=== PATIENT | female | born 1995 | race Caucasian/White ===

== ENCOUNTER 2016-11-30 10:32 | Inpatient (IN) | payer OTHER ==
[~2016-11-30] VITALS: Ht 160 cm; Wt 85.0 kg
[~2016-11-30 10:32] MED LIST: CLC100 PO; FRRS300 PO; MTR600X PO; PRENTAB26 PO
[2016-11-30] MEDS ORDERED: LACTATED RINGER'S 1000ML 1,000 ML IV PRN (10:43)
[2016-11-30] MEDS ORDERED: LACTATED RINGER'S 1000ML 1,000 ML IV SCH ×2 (10:43→15:28)
--- NOTE | 2016-11-30 10:48 | Progress Note ---
Progress Note Admit Note 21 F P1000 at 38 weeks admitted in active labor. Cervix 8/100/-1/intact with bulging membranes. GBS negative. FHT Cat 1. Will admit in active labor.
[2016-11-30 11:06] LABS: HEMATOCRIT 30.8 % (37-47); MEAN CELL VOLUME 77.2 fL (80-100); MEAN CORPUSCULAR HEMOGLOBIN 26.1 pg (25-34); MEAN CORPUSCULAR HGB CONC 33.8 g/dl (32-36); MEAN PLATELET VOLUME 9.5 fL (7.4-10.4); PLATELET COUNT 281 K/uL (130-400); RED BLOOD COUNT 3.99 M/uL (4.2-5.4); WHITE BLOOD COUNT 7.06 K/uL (4.8-10.8)
[2016-11-30 11:37] VITALS: Ht 160 cm; Wt 85.0 kg
[2016-11-30] MEDS ORDERED: OXYTOCIN 30 UNITS/500ML NSS IV ONE (12:01)
--- NOTE | 2016-11-30 12:04 | Progress Note ---
Progress Note Cervix with anterior lip/-1 AROM with thin meconium fluid noted. FHT Cat 1
[2016-11-30] MEDS ORDERED: LACTATED RINGER'S 1000ML 500 ML IV PRN (12:19)
[2016-11-30] MEDS ORDERED: OXYTOCIN 30 UNITS/500ML NSS IV PRN ×2 (12:30→15:30)
[2016-11-30] MEDS ORDERED: BUTORPHANOL TARTRATE 1 MG/ML VIAL ONE (13:26)
[2016-11-30] MEDS ORDERED: BUTORPHANOL TARTRATE 1 MG/ML VIAL IV ONE (13:30)
[2016-11-30] MEDS ORDERED: IBUPROFEN 600 MG TAB ONE (15:19)
[2016-11-30] MEDS ORDERED: DIPHTHERIA/TETANUS/PERTUSSIS 0.5 ML SYR/VIAL IM. ONE (15:30)
[2016-11-30] MEDS ORDERED: SUPERCREAM 0.870 % 15GM JAR EXT PRN (15:30)
[2016-11-30] MEDS ORDERED: LANOLIN OINT EXT PRN ×2 (15:30)
[2016-11-30] MEDS ORDERED: ACETAMINOPHEN/CODEINE 300/30MG TAB PO PRN ×2 (15:30)
[2016-11-30] MEDS ORDERED: HYDROCORTISONE ACETATE 25 MG SUPP PR PRN (15:30)
[2016-11-30] MEDS ORDERED: IBUPROFEN 600 MG TAB PO PRN (15:30)
[2016-11-30] MEDS ORDERED: ACETAMINOPHEN 325 MG TAB PO PRN (15:30)
[2016-11-30] MEDS ORDERED: MEASLES, MUMPS & RUBELLA VIRUS VIAL SQ. ONE (15:30)
[2016-11-30] MEDS ORDERED: BENZOCAINE 20% AER SPR 82.5 GM CAN EXT PRN (15:30)
[2016-11-30] MEDS ORDERED: OXYCODONE/ACETAMINOPHEN 5-325 TAB PO PRN (15:30)
--- NOTE | 2016-11-30 15:35 | Progress Note ---
Progress Note Delivery Note live female over intact perineum with Apgars 8/9 weight pending. Delayed cord clamping followed by cord collection and spontaneous delivery of intact placenta. EBL 200 ml. No tears. Final sponge, needle and instrument count are correct. MOm and baby stable.
[2016-11-30 18:46] VITALS: BP 129/82; PULSE 96; TEMP 36.7
[2016-11-30 19:40] VITALS: BP 128/87; PULSE 97; TEMP 36.4; O2SAT 98
[2016-11-30] MEDS: DOCUSATE SODIUM 100 MG CAP PO SCH (20:20)
[2016-11-30 22:15] VITALS: BP 123/80; PULSE 86; TEMP 36.9; O2SAT 99
[2016-12-01 02:45] VITALS: BP 114/68; PULSE 96; TEMP 37.1; O2SAT 98
[2016-12-01 06:54] LABS: HEMATOCRIT 23.8 % (37-47)
[2016-12-01 07:45] VITALS: BP 115/73; PULSE 92; TEMP 37; O2SAT 98
[2016-12-01] MEDS ORDERED: FERROUS SULFATE 325 MG TAB PO SCH (08:00)
--- NOTE | 2016-12-01 09:01 | OB/GYN Progress Note ---
SAND MOLDER Progress Note Date of Service: Dec 01, 2016. Patient is seen and examined. She feels well, no complaints. Ambulating without dizziness Voiding without difficulty Tolerating regular diet with out N&V Bleeding is minimal No fever/ chills/ CP/ SOB/ N&V/ Leg pain Breast feeding without problems Date Time Temp Pulse Resp B/P Pulse Ox O2 Delivery O2 Flow Rate FiO2 12/01/16 02:45 37.1 96 16 114/68 98 Room Air 11/30/16 22:15 99 Room Air 11/30/16 22:15 36.9 86 18 123/80 99 Room Air 11/30/16 19:40 36.4 97 16 128/87 98 Room Air 11/30/16 18:50 Room Air 11/30/16 18:46 36.7 96 20 129/82 Room Air Last 24 Hours Test 11/30/16 10:55 12/01/16 06:11 White Blood Count 7.06 K/uL Red Blood Count 3.99 M/uL Hemoglobin 10.4 g/dL 8.0 g/dL Hematocrit 30.8 % 23.8 % Mean Corpuscular Volume 77.2 fL Mean Corpuscular Hemoglobin 26.1 pg Mean Corpuscular Hemoglobin Concent 33.8 g/dl RDW Standard Deviation 43.3 fL RDW Coefficient of Variation 15.2 % Platelet Count 281 K/uL Mean Platelet Volume 9.5 fL PE: General: Alert, orientedx3, NAD Abd: soft, NT, fundus firm, below Umbilicus Perineum intact, Lochia rubra minimal, small 3x3 mm ext. hemorrhoid+, pink, NT Ext; NT, no edema AP: 21 yo s/p , ppd# 1 VSS Afebrile doing well Continue routine care All questions were answered D/C home tomorrow
[2016-12-01] MEDS: FERROUS SULFATE 325 MG TAB PO SCH ×2 (09:03→17:27)
[2016-12-01] MEDS: DOCUSATE SODIUM 100 MG CAP PO SCH ×2 (09:03→19:57)
[2016-12-01] MEDS: PRENATAL VITAMIN TAB PO SCH (09:03)
[2016-12-01 11:00] VITALS: BP 115/75; PULSE 88; TEMP 36.8; O2SAT 98
[2016-12-01 17:00] VITALS: BP 114/78; PULSE 88; TEMP 36.8; O2SAT 98
[2016-12-01] MEDS ORDERED: BISACODYL 5 MG TABEC PO SCH (20:00)
[2016-12-02 00:20] VITALS: BP 104/68; PULSE 90; TEMP 36.8
[2016-12-02] MEDS ORDERED: BISACODYL 10 MG SUPP PR PRN (07:00)
[2016-12-02 07:30] VITALS: BP 118/73; PULSE 91; TEMP 37; O2SAT 98
[2016-12-02] MEDS: DOCUSATE SODIUM 100 MG CAP PO SCH (08:23)
[2016-12-02] MEDS: FERROUS SULFATE 325 MG TAB PO SCH (08:23)
[2016-12-02] MEDS: PRENATAL VITAMIN TAB PO SCH (08:23)
--- NOTE | 2016-12-02 09:44 | Discharge Instructions ---
Discharge Instructions Admission Reason for Admission: Labor Check Discharge Discharge Diagnosis / Problem: Vaginal Delivery Discharge Goals Goal(s): Routine recovery after delivery Medications Continue Dispensed Medications: supercream, dermaplast, tucks, lansinoh Activity Recommendations Activity Limitations: per Instructions/Follow-up section . Instructions / Follow-Up Instructions / Follow-Up ACTIVITY RECOMMENDATIONS: * Gradual return to full activity over the next 2-3 weeks. * No lifting - nothing heavier than baby over the next 2-3 weeks. * Do not engage in vigorous exercise, sexual activity or sports until cleared by your physician. * Do not drive or operate any motorized equipment until cleared by your physician. * You may shower/bathe daily. BREAST CARE: If you are not breast feeding: * Wear a supportive bra 24 hours a day for one to two weeks. * Avoid stimulating your breasts and nipples as much as possible during the first few weeks after delivery. * When taking a shower, have the warm water hit your back, not breasts. * When your breasts feel full, apply ice packs. Usually three to four times a day helps ease the discomfort. * Take a mild pain medication (Tylenol/Motrin) when you are uncomfortable. If breast feeding: * Use breast milk to lubricate nipples. Lansinoh cream may be used for sore nipples. You do not need to remove cream prior to breast feeding. If using a different brand of cream, check the label for directions regarding removal of cream prior to nursing. * Wear a supportive bra. * If having problems with breasts or breast feeding, call a sap ppm consultant or your health care provider. EPISIOTOMY CARE: After delivery, if you have an episiotomy (stitches), the following steps will ease discomfort and aid healing. * For the first 24 hours after delivery, place ice packs next to your episiotomy to help reduce swelling. * After the first 24 hour-period, sitz baths, either portable or in the tub, are suggested. A shower with a shower arm sprayed over the episiotomy may be comforting. * Lyn care should be done after each voiding and bowel movement. Squirt warm water from a plastic bottle over the perineum (region of the body between the anus and urinary opening) and pat dry. * Use Dermoplast to ease discomfort. Shake container. [place] directly over the episiotomy. * Place a Tucks on a clean sanitary pad next to your episiotomy. OVER THE COUNTER MEDICATION: * For discomfort or pain, you may use Acetaminophen (Tylenol), Ibuprofen (Advil ), or Naproxen (Aleve) following the package directions. * For constipation you may use Colace following the package directions. SPECIAL CARE INSTRUCTIONS: When you are discharged from the hospital, it is important for you to follow the instructions listed below: * During the first week at home, you should be able to care for yourself and your baby. In addition, the usual light household activities are encouraged. * Limit your activities to the way you feel. Do not try to clean the house or move furniture. Be sensible. * If you actively engage in sports and have done so up until the time of your delivery, you may resume these activities as soon as you feel able. This may take up to one month or even longer. Use good judgment. * Continue to take your vitamins for at least six weeks after the of your baby. * Your diet need not be limited unless you were on a special diet before your delivery. Breast-feeding mothers need around 2500 calories per day and at least 64-80 ounces of fluid per day (8 to 10 glasses). * You should eat foods from the four major food groups. Crash diets or fad diets are to be avoided. Eating lean meats, fresh fruits and vegetables, low-fat dairy products, high fiber foods and a regular exercise program, will help you get back to your pre- weight without putting your health at risk. * Constipation is sometimes a problem after delivery. Take a mild laxative as needed. If breast feeding, Milk of Magnesia is acceptable to use. You may use a suppository or Fleets enema if no episiotomy. * A daily shower or tub bath is suggested. Be sure to thoroughly and gently dry the perineum. * A bloody vaginal discharge will usually continue until around four weeks post . A small amount of bleeding may continue for as long as six weeks. Vaginal discharge changes from the bright red bleeding after delivery to pink then brownish and finally yellowish-pink before becoming white and disappearing. * Bleeding may increase with activity. Your first period may come in 4-8 weeks. If you are breast feeding, your period may be delayed even longer. * [place] (sex) can begin whenever both you and your partner feel comfortable and do not have any form of genital infection. It is recommended that you wait until after your return appointment and discuss with your physician. If you have questions, please talk to your health care practitioner. A condom should be used to prevent infection and . * Foreplay, gentle intercourse and lubrication is very important the first several times to prevent pain. A water-based lubricant such as K-Y jelly or Astroglide may be used. * Tampons may be used six weeks after delivery. * Douching should be avoided for 6 weeks after delivery. * If you have RH negative blood and your baby is RH positive, you will receive RHOGAM by injection prior to discharge. The nurse will give you a card to keep with you that has the date and place that you received RHOGAM after delivery. * During your care, you had a Rubella screen done to check for the presence of rubella antibodies in your blood. If your test was negative, you will receive a Rubella vaccine prior to discharge. This vaccine may cause a fever, soreness at the injection site and flu-like symptoms. If these symptoms persist, notify your health care practitioner. is not advised for three months after a Rubella vaccine. There is a higher chance of having a baby with defects if conceived within three months of getting the vaccine. * If you were discharged 24 hours from delivery or before 48 hours: Visiting nurses will come to your home 48 hours after discharge to assess you and your baby. The visiting nurse will meet with you while you are in the hospital to arrange a time and get directions to your home. * Verbalizes understanding of car seat law as reviewed with patient nursing. * Car Seat hand-out given and reviewed with patient by nursing. * Shaken baby information reviewed with patient by nursing. Call you doctor if: * Heavy bleeding (saturating several pads an hour) or passing clots the size of your fist. * A fever >101 degrees F (38.3 degrees C) on two occasions four hours apart and/or chills. * Unusual pain in the pelvic or vaginal areas. * "Baby Blues" lasting longer than two weeks. If you have any questions or concerns, call your health care practitioner at . FOLLOW-UP VISIT: * Please call the office at to schedule a 6 week examination. It is important you keep this appointment. * It is important for you to make arrangements for either yearly or twice yearly check-ups thereafter. Current Hospital Diet Patient's current hospital diet: Regular OB Diet Discharge Diet Recommended Diet: Regular OB Diet Pending Studies Studies pending at discharge: no Medical Emergencies . Who to Call and When: Medical Emergencies: If at any time you feel your situation is an emergency, please call 911 immediately. . Non-Emergent Contact Non-Emergency issues call your: Primary Care Provider, Photographic Process Worker . . "Provider Documentation" section prepared by Vernon Carter. VTE Core Measure Inpt VTE Proph given/why not?: Treatment not indicated
--- NOTE | 2016-12-02 09:46 | OB/GYN Progress Note ---
FENCE SUPERVISOR Progress Note Date of Service Dec 02, 2016. Subjective conversation w/ patient Ambulation: ambulating normally Voiding: no voiding problems Passing Gas: Yes Diet Tolerance: Regular Diet Lochia: Moderate Feeding Type: Breast Feeding Pain: 11/17 Notes: Doing well, no concerns. Would like to go home today. Objective Vital Signs Date Time Temp Pulse Resp B/P Pulse Ox O2 Delivery O2 Flow Rate FiO2 12/02/16 00:20 Room Air 12/02/16 00:20 36.8 90 18 104/68 12/01/16 17:00 98 Room Air 12/01/16 17:00 36.8 88 18 114/78 98 Room Air 12/01/16 11:00 36.8 88 16 115/75 98 Room Air Physical Exam General Appearance: WELL-APPEARING Respiratory/Chest: chest non-tender, lungs clear Cardiovascular: regular rate, rhythm Abdomen: normal bowel sounds, soft Fundus: Firm Extremities: normal range of motion, non-tender, no calf tenderness Assessment and Plan Post- Day Number: 2 Continue Routine Care: -D/C home today -F/U in 6 weeks.
[2016-12-02 10:35] VITALS: BP_DIAS 73; PULSE 91; TEMP 37
== END 2016-12-02 10:45 | disposition home or self-care (01) | DRG 775 ==
LOC: C.OPB 10:32 → C.LD 10:33 → C.OPB 10:43 → C.LD 10:43 → C.OBG 18:13
PROVIDERS: ADMIT Obstetrics & Gynecology; ATTEND Obstetrics & Gynecology
PROC: 10E0XZZ Delivery of Products of Conception, External Approach (ICD-10-PCS; principal; 2016-11-30)
DX: O77.0 Labor and delivery complicated by meconium in amniotic fluid (principal); O87.2 Hemorrhoids in the puerperium; Z37.0 Single live birth; Z3A.38 38 weeks gestation of pregnancy

== ENCOUNTER → 2017-08-17 | Outpatient (CLI) | payer OTHER ==
[~2017-08-17] MED LIST changes: -MTR600X PO
[2017-08-17 14:26] LABS: URINE APPEARANCE CLEAR (CLEAR); URINE BILIRUBIN NEG (NEG); URINE COLOR YELLOW; URINE NITRITE NEG (NEG); URINE PH 7.5 (4.5-7.5); URINE SPECIFIC GRAVITY 1.006 (1.000-1.030); UROBILINOGEN NEG (NEG)
[2017-08-17 14:27] LABS: MANUAL MICROSCOPIC REQUIRED? NO; REVIEW REQ? NO
[2017-08-20 00:32] LABS: CHLAMYDIA TRACH RNA*** NOT DETECTED (NOT DETECTED); GC (NEIS GONORRHOEAE)RNA** NOT DETECTED (NOT DETECTED)
== END | disposition home or self-care (01) ==
LOC: C.LABSPEC 13:39
PROVIDERS: ATTEND Obstetrics & Gynecology
DX: Z34.81 Encounter for supervision of other normal pregnancy, first trimester (principal)

== ENCOUNTER → 2017-10-19 | Outpatient (CLI) | payer OTHER ==
[2017-10-19 15:32] LABS: GTGD 50 Grams
== END | disposition home or self-care (01) ==
LOC: C.LAB1850 13:54
PROVIDERS: ATTEND Obstetrics & Gynecology
DX: Z34.82 Encounter for supervision of other normal pregnancy, second trimester (principal)

== ENCOUNTER → 2018-01-07 | Outpatient (CLI) | payer OTHER | END | disposition home or self-care (01) | LOC: C.LABSPEC 13:13 | PROVIDERS: ATTEND Obstetrics & Gynecology | DX: Z34.83 Encounter for supervision of other normal pregnancy, third trimester (principal) ==

== ENCOUNTER → 2018-01-07 | Outpatient (CLI) | payer OTHER ==
[2018-01-07 12:03] LABS: HEMATOCRIT 30.5 % (37-47); HEMOGLOBIN 10.3 g/dL (12.0-16.0)
== END | disposition home or self-care (01) ==
LOC: C.LAB1850 10:05
PROVIDERS: ATTEND Obstetrics & Gynecology
DX: Z34.83 Encounter for supervision of other normal pregnancy, third trimester (principal); Z29.13 Encounter for prophylactic Rho(D) immune globulin

== ENCOUNTER → 2018-01-11 | Outpatient (CLI) | payer OTHER | END | disposition home or self-care (01) | LOC: C.LAB1850 13:07 | PROVIDERS: ATTEND Obstetrics & Gynecology | DX: Z34.83 Encounter for supervision of other normal pregnancy, third trimester (principal); Z29.13 Encounter for prophylactic Rho(D) immune globulin ==

== ENCOUNTER → 2018-01-21 | Outpatient (CLI) | payer OTHER | END | disposition home or self-care (01) | LOC: C.LAB1850 10:30 | PROVIDERS: ATTEND Obstetrics & Gynecology | DX: Z34.83 Encounter for supervision of other normal pregnancy, third trimester (principal) ==

== ENCOUNTER → 2018-03-04 | Outpatient (CLI) | payer OTHER | END | disposition home or self-care (01) | LOC: C.LABSPEC 17:44 | PROVIDERS: ATTEND Obstetrics & Gynecology | DX: Z34.83 Encounter for supervision of other normal pregnancy, third trimester (principal) ==

== ENCOUNTER 2018-03-16 06:02 | Inpatient (IN) | payer OTHER ==
[~2018-03-16] VITALS: Ht 160 cm; Wt 90.0 kg
[2018-03-16 06:34] VITALS: Ht 160 cm; Wt 90.0 kg
[2018-03-16] MEDS ORDERED: LACTATED RINGER'S 1000ML 1,000 ML IV SCH (06:38)
[2018-03-16] MEDS ORDERED: LACTATED RINGER'S 1000ML 1,000 ML IV PRN (06:38)
[2018-03-16] MEDS ORDERED: FERR325T18 PO (06:48)
[2018-03-16 07:00] LABS: HEMATOCRIT 29.9 % (37-47); HEMOGLOBIN 9.9 g/dL (12.0-16.0); MEAN CELL VOLUME 76.3 fL (80-100); MEAN CORPUSCULAR HEMOGLOBIN 25.3 pg (25-34); MEAN CORPUSCULAR HGB CONC 33.1 g/dl (32-36); MEAN PLATELET VOLUME 9.2 fL (7.4-10.4); PLATELET COUNT 269 K/uL (130-400); RED CELL DISTRIBUTION WIDTH CV 14.2 % (11.5-14.5); RED CELL DISTRIBUTION WIDTH SD 39.8 fL (36.4-46.3); WHITE BLOOD COUNT 7.45 K/uL (4.8-10.8)
[2018-03-16] MEDS ORDERED: BUPIVACAINE 0.25% 30 ML VIAL ONE (07:20)
[2018-03-16] MEDS ORDERED: EpHEDrine SULFATE INJ 50 MG/ML AMP ONE (07:20)
[2018-03-16] MEDS ORDERED: FENTANYL 2MCG/ML ROPIV 1.25MG/ML 100ML BAG ONE (07:21)
[2018-03-16] MEDS ORDERED: FENTANYL CITRATE INJ 50 MCG/1 ML 2 ML VIAL ONE (07:21)
[2018-03-16] MEDS ORDERED: LACTATED RINGER'S 1000ML 500 ML IV PRN (08:16)
[2018-03-16] MEDS ORDERED: NALOXONE HCL INJ 1 MG in SODIUM CHLORIDE 0.9% 1000ML 1,000 ML IV PRN (08:16)
[2018-03-16] MEDS ORDERED: NALOXONE HCL INJ 0.4 MG/1 ML VIAL/CARP IV PRN (08:30)
[2018-03-16] MEDS ORDERED: EpHEDrine SULFATE INJ 50 MG/ML AMP IV PRN (08:30)
[2018-03-16] MEDS ORDERED: NALBUPHINE HCL INJ 10 MG/ML AMP IV PRN (08:30)
[2018-03-16] MEDS ORDERED: ONDANSETRON INJ 2 MG/ML 2 ML VIAL IV PRN (08:30)
[2018-03-16] MEDS ORDERED: FENTANYL 2MCG/ML ROPIV 1.25MG/ML 100ML BAG EPI PRN (08:30)
[2018-03-16] MEDS ORDERED: DiphenhydrAMINE HCL 50 MG/ML VIAL IV PRN (08:30)
[2018-03-16] MEDS ORDERED: OXYTOCIN 30 UNITS/500ML NSS IV ONE (10:49)
[2018-03-16] MEDS ORDERED: METHYLERGONOVINE MALEATE 0.2 MG/ML AMP ONE (10:56)
[2018-03-16] MEDS ORDERED: OXYTOCIN 30 UNITS/500ML NSS IV PRN (11:15)
[2018-03-16] MEDS ORDERED: SUPERCREAM 0.870 % 15GM JAR EXT PRN (11:15)
[2018-03-16] MEDS ORDERED: LANOLIN OINT EXT PRN (11:15)
[2018-03-16] MEDS ORDERED: DIPHTHERIA/TETANUS/PERTUSSIS 0.5 ML SYR/VIAL IM. ONE (11:15)
[2018-03-16] MEDS ORDERED: ACETAMINOPHEN 325 MG TAB PO PRN (11:15)
[2018-03-16] MEDS ORDERED: HYDROCORTISONE ACETATE 25 MG SUPP PR PRN (11:15)
[2018-03-16] MEDS ORDERED: BENZOCAINE 20% AER SPR 82.5 GM CAN EXT PRN (11:15)
[2018-03-16] MEDS ORDERED: ACETAMINOPHEN/CODEINE 300/30MG TAB PO PRN ×2 (11:15)
--- NOTE | 2018-03-16 11:49 | DELIVERY SUMMARY ---
DATE OF OPERATION: 03/16/2018 DATE OF DELIVERY: 03/16/18 PREDELIVERY DIAGNOSES: 1. 23-year-old -0-0-1 at 38 weeks 6 days. 2. Spontaneous labor. 3. Rh negative. 4. History of at . POST DELIVERY DIAGNOSES: Same. PROCEDURE: Spontaneous vaginal delivery and repair of first degree perineal laceration. COMPLICATIONS: None. ESTIMATED BLOOD LOSS: 300 mL. FINDINGS: Viable female . Apgars 8 and 9. Weight pending, please see nursery record. DESCRIPTION OF DELIVERY: The patient had presented in spontaneous labor, received an epidural and progressed to complete. heart tracing was category 1 throughout and then she had 2-3 variable decelerations just prior to pushing. She pushed once and spontaneously vaginally delivered a viable from the cephalic presentation. The head delivered in left occiput anterior position, no nuchal cord was noted. The anterior shoulder delivered followed by the posterior shoulder, followed by the body. The baby was placed on mother's abdomen. The cord was doubly clamped and cut and the baby was handed off to the waiting cassandra consultant, Dr. Juares, who attended delivery. The cord was doubly clamped and cut for a cord gas segment. Cord blood was obtained. The placenta then delivered spontaneously intact with a 3-vessel cord. Pitocin was given. The uterus was initially boggy and therefore a dose of Methergine was ordered and given. The bladder was drained for 400 cc of urine. The vagina and uterus were swept of all clots and debris. The cervix, vagina and perineum were inspected and a first degree peroneal laceration was noted and repaired in standard fashion with 3-0 Vicryl. Excellent hemostasis was observed and the uterus was firm. The mother and baby tolerated the delivery well and are recovering in the room in stable and good condition. All instrument, sponge and needle counts were correct at the conclusion of the delivery x2. I attest to the content of the Intraoperative Record and any orders documented therein. Any exception s are noted below.
[2018-03-16] MEDS: IBUPROFEN 600 MG TAB PO PRN ×3 (13:40→23:25)
[2018-03-16 14:15] VITALS: BP 129/82; PULSE 121; TEMP 36.6
[2018-03-16 16:00] VITALS: BP 106/70; PULSE 88; TEMP 36.7; O2SAT 97
--- NOTE | 2018-03-16 16:27 | Discharge Instructions ---
Discharge Instructions Date of Service March 16, 2018. Admission Reason for Admission: LABOR Discharge Discharge Diagnosis / Problem: Vaginal Delivery Discharge Goals Goal(s): Routine recovery after delivery Medications Continue Dispensed Medications: supercream, dermaplast, tucks, lansinoh Activity Recommendations Activity Limitations: per Instructions/Follow-up section . Instructions / Follow-Up Instructions / Follow-Up ACTIVITY RECOMMENDATIONS: * Gradual return to full activity over the next 2-3 weeks. * No lifting - nothing heavier than baby over the next 2-3 weeks. * Do not engage in vigorous exercise, sexual activity or sports until cleared by your physician. * Do not drive or operate any motorized equipment until cleared by your physician. * You may shower/bathe daily. MEDICATIONS: For discomfort or pain, you may use Acetaminophen (Tylenol), Ibuprofen (Advil), or Naproxen (Aleve) following the package directions. For constipation you may use Colace following the package directions. BREAST CARE: If you are not breast feeding: * Wear a supportive bra 24 hours a day for one to two weeks. * Avoid stimulating your breasts and nipples as much as possible during the first few weeks after delivery. * When taking a shower, have the warm water hit your back, not breasts. * When your breasts feel full, apply ice packs. Usually three to four times a day helps ease the discomfort. * Take a mild pain medication (Tylenol / Motrin) when you are uncomfortable. If breast feeding: * Use breast milk to lubricate nipples. Lansinoh cream may be used for sore nipples. You do not need to remove cream prior to breast feeding. If using a different brand of cream, check the label for directions regarding removal of cream prior to nursing. * Wear a supportive bra. * If having problems with breasts or breast feeding, call a sap pp consultant or your health care provider. EPISIOTOMY CARE: After delivery, if you have an episiotomy (stitches), the following steps will ease discomfort and aid healing. * For the first 24 hours after delivery, place ice packs next to your episiotomy to help reduce swelling. * After the first 24 hour-period, sitz baths, either portable or in the tub, are suggested. A shower with a shower arm sprayed over the episiotomy may be comforting. * Lyn care should be done after each voiding and bowel movement. Squirt warm water from a plastic bottle over the perineum (region of the body between the anus and urinary opening) and pat dry. * Use Dermoplast to ease discomfort. Shake container. [place] directly over the episiotomy. Place a Tucks on a clean sanitary pad next to your episiotomy. SPECIAL CARE INSTRUCTIONS: When you are discharged from the hospital, it is important for you to follow the instructions listed below: * During the first week at home, you should be able to care for yourself and your baby. In addition, the usual light household activities are encouraged. * Limit your activities to the way you feel. Do not try to clean the house or move furniture. Be sensible. * If you actively engage in sports and have done so up until the time of your delivery, you may resume these activities as soon as you feel able. This may take up to one month or even longer. Use good judgment. * Continue to take your vitamins for at least six weeks after the of your baby. * Your diet need not be limited unless you were on a special diet before your delivery. Breast-feeding mothers need around 2500 calories per day and at least 64-80 ounces of fluid per day (8 to 10 glasses). * You should eat foods from the four major food groups. Crash diets or fad diets are to be avoided. Eating lean meats, fresh fruits and vegetables, low-fat dairy products, high fiber foods and a regular exercise program, will help you get back to your pre- weight without putting your health at risk. * Constipation is sometimes a problem after delivery. Take a mild laxative as needed. If breast feeding, Milk of Magnesia is acceptable to use. You may use a suppository or Fleets enema if no episiotomy. * A daily shower or tub bath is suggested. Be sure to thoroughly and gently dry the perineum. * A bloody vaginal discharge will usually continue until around four weeks post . A small amount of bleeding may continue for as long as six weeks. Vaginal discharge changes from the bright red bleeding after delivery to pink then brownish and finally yellowish-pink before becoming white and disappearing. * Bleeding may increase with activity. Your first period may come in 4-8 weeks. If you are breast feeding, your period may be delayed even longer. * [place] (sex) can begin whenever both you and your partner feel comfortable and do not have any form of genital infection. It is recommended that you wait at least six weeks for internal and external healing to occur. If you have questions, please talk to your health care practitioner. A condom should be used to prevent infection and . * Foreplay, gentle intercourse and lubrication is very important the first several times to prevent pain. A water-based lubricant such as K-Y jelly or Astroglide may be used. * If you have RH negative blood and your baby is RH positive, you will receive RHOGAM by injection prior to discharge. The nurse will give you a card to keep with you that has the date and place that you received RHOGAM after delivery. * During your care, you had a Rubella screen done to check for the presence of rubella antibodies in your blood. If your test was negative, you will receive a Rubella vaccine prior to discharge. This vaccine may cause a fever, soreness at the injection site and flu-like symptoms. If these symptoms persist, notify your health care practitioner. is not advised for one month after a Rubella vaccine. * Verbalizes understanding of car seat law as reviewed with patient nursing. * Car Seat hand-out given and reviewed with patient by nursing. * Shaken baby information reviewed with patient by nursing. Call you doctor if: * Heavy bleeding (saturating several pads an hour) or passing clots the size of your fist. * A fever >101 degrees F (38.3 degrees C) on two occasions four hours apart and /or chills. * Unusual pain in the pelvic or vaginal areas. * "Baby Blues" lasting longer than two weeks. If you have any questions or concerns, call your health care practitioner at . FOLLOW UP VISIT: * Please call the office at to schedule a 6 week examination. It is important you keep this appointment. It is important for you to make arrangements for either yearly or twice yearly check-ups thereafter. Current Hospital Diet Patient's current hospital diet: Regular OB Diet Discharge Diet Recommended Diet: Regular Diet Pending Studies Studies pending at discharge: no Medical Emergencies . Who to Call and When: Medical Emergencies: If at any time you feel your situation is an emergency, please call [phone] immediately. . Non-Emergent Contact Non-Emergency issues call your: Primary Care Provider . . "Provider Documentation" section prepared by Shelley Sheth. .
[2018-03-16 19:45] VITALS: BP 113/74; PULSE 91; TEMP 36.9; O2SAT 98
[2018-03-16] MEDS: FERROUS GLUCONATE 324 MG TAB PO SCH (21:02)
[2018-03-16 23:00] VITALS: BP 132/87; PULSE 79; TEMP 36.6; O2SAT 96
[2018-03-17 03:50] VITALS: BP 116/74; PULSE 78; TEMP 36.6; O2SAT 99
--- NOTE | 2018-03-17 06:26 | Progress Note ---
Subjective March 17, 2018. Subjective conversation w/ patient Ambulation: ambulating normally Voiding: no voiding problems Diet Tolerance: Regular Diet Lochia: Moderate Feeding Type: Breast Feeding Pain: 1-2/10 crampy abdominal pain Review of Systems Constitutional: No fever, No chills Respiratory: No shortness of breath Cardiac: No chest pain Abdomen: No nausea, No vomiting Objective Vital Signs Date Time Temp Pulse Resp B/P (MAP) Pulse Ox O2 Delivery O2 Flow Rate FiO2 03/17/18 03:50 36.6 78 16 116/74 (88) 99 Room Air 03/16/18 23:00 36.6 79 18 132/87 (102) 96 Room Air 03/16/18 23:00 96 Room Air 03/16/18 19:45 36.9 91 18 113/74 (87) 98 Room Air 03/16/18 16:00 97 Room Air 03/16/18 16:00 36.7 88 16 106/70 (82) 97 Room Air 03/16/18 14:15 Room Air 03/16/18 14:15 36.6 121 16 129/82 (98) Room Air Physical Exam General Appearance: WELL-APPEARING, WD/WN, NO APPARENT DISTRESS Respiratory/Chest: lungs clear, normal breath sounds Cardiovascular: regular rate, rhythm Abdomen: soft Fundus: Firm, Non-Tender, Relation to Umbilicus (at u) Extremities: no pedal edema, no calf tenderness Laboratory Results Last 24 Hours Test 03/16/18 06:51 03/17/18 04:44 White Blood Count 7.45 K/uL Red Blood Count 3.92 M/uL Hemoglobin 9.9 g/dL Hematocrit 29.9 % Mean Corpuscular Volume 76.3 fL Mean Corpuscular Hemoglobin 25.3 pg Mean Corpuscular Hemoglobin Concent 33.1 g/dl RDW Standard Deviation 39.8 fL RDW Coefficient of Variation 14.2 % Platelet Count 269 K/uL Mean Platelet Volume 9.2 fL Assessment and Plan Post- Day#: 1 Continue Routine Care: 23F s/p NVD day 4 - pt's hx significant for past demise at - AB-, Rubella Immune, GBS -ve - baby is A+, will need rhogam - pt doing well clinically - Vital signs reviewed - pt had one episode of tachycardia at 121 yesterday that resolved - Encourage ambulation, monitor and control pain with Motrin PRN - Encourage breast feeding Resident Physician Supervision Note: I was present with Dr. Sheth during the history and exam. I discussed the case with the resident and agree with the findings and plan as documented in the note. Any exceptions or clarifications are listed here: PPD#1 doing well. Continue routine care. Documented By: Malini Henderson Resident Tracking Resident Involvement: Resident Care Provided Care Provided: OB Delivery
[2018-03-17 07:01] LABS: HEMATOCRIT 31.6 % (37-47); HEMOGLOBIN 10.3 g/dL (12.0-16.0)
[2018-03-17 07:54] VITALS: BP 111/72; PULSE 80; TEMP 36.6
[2018-03-17] MEDS: FERROUS GLUCONATE 324 MG TAB PO SCH (07:57)
[2018-03-17] MEDS: IBUPROFEN 600 MG TAB PO PRN ×2 (07:59→13:39)
[2018-03-17] MEDS ORDERED: FERROUS GLUCONATE 324 MG TAB PO SCH (08:00)
[2018-03-17] MEDS ORDERED: PRENATAL VITAMIN TAB PO SCH ×2 (08:00)
[2018-03-17 14:15] VITALS: BP_DIAS 72; PULSE 80; TEMP 36.6
[2018-03-17] MEDS ORDERED: BISACODYL 5 MG TABEC PO SCH (20:00)
[2018-03-18] MEDS ORDERED: BISACODYL 10 MG SUPP PR PRN (07:00)
== END 2018-03-17 16:10 | disposition home or self-care (01) | DRG 775 ==
LOC: C.LD 06:02 → C.OPB 06:02 → C.LD 06:38 → C.OPB 06:38 → C.OBG 14:12 → EDSTATUS 03-24 06:01
PROVIDERS: ADMIT Obstetrics & Gynecology; ATTEND Obstetrics & Gynecology
PROC: 10E0XZZ Delivery of Products of Conception, External Approach (ICD-10-PCS; principal; 2018-03-16)
PROC: 0HQ9XZZ Repair Perineum Skin, External Approach (ICD-10-PCS; principal; 2018-03-16)
DX: O70.0 First degree perineal laceration during delivery (principal); Z3A.38 38 weeks gestation of pregnancy; O09.293 Supervision of pregnancy with other poor reproductive or obstetric history, third trimester; Z37.0 Single live birth